=== PATIENT | male | born 1940 | race Caucasian/White ===

== ENCOUNTER 2022-04-13 13:40 | Inpatient (IN) ==
[2022-04-13] MEDS ORDERED: SODIUM CHLORIDE 0.9% 1,000 ML IV STA (13:49)
[2022-04-13 14:29] LABS: Basophils # 0.1 10*3/uL (0.0-0.2); Basophils % 0.7 % (0.0-0.8); Eosinophils # 0.1 10*3/uL (0.0-0.87); Eosinophils % 1.6 % (0.00-10.9); Hematocrit 38.7 VOL% (42.0-52.0); Immature Granulocytes % 0.3 %; Immature Granulocytes Absolute 0.02 #; Lymphocytes # 0.8 10*3/uL (1.4-4.0); Lymphocytes % 11.8 % (21.2-54.2); Mean Corpuscular HGB Conc 33.6 GM/DL (32-36); Mean Corpuscular Volume 95.8 FL (87-102); Mean Platelet Volume 11.1 FL (9.6-12.0); Monocytes # 0.7 10*3/uL (0.11-0.8); Monocytes % 10.3 % (1.7-12.7); Neutrophils % 75.3 % (38.7-73.9); Platelet Count 173 T/CUMM (130-400); Red Blood Count 4.04 MC/CUMM (3.8-5.5); Red Cell Distribution Width 13.2 % (9.3-17.3)
[2022-04-13 14:50] LABS: Alanine Aminotransferase 35 U/L (16-61); Albumin 3.5 G/DL (3.4-5.0); Alkaline Phosphatase 62 U/L (45-117); Aspartate Amino Transferase 30 U/L (0-37); Blood Urea Nitrogen 25 MG/DL (7-18); Carbon Dioxide 22 MMOL/L (21-32); Chloride 105 MMOL/L (98-107); Glucose 109 MG/DL (74-106); Potassium 4.6 MMOL/L (3.5-5.1); Sodium 136 MMOL/L (136-145); Total Protein 6.6 G/DL (6.4-8.2)
[2022-04-13 15:07] LABS: INR 1.1; PT Patient Result 12.2 SECS (10.5-12.0)
[2022-04-13] MEDS ORDERED: ASPIRIN 325 MG TABLET PO STA (16:07)
[2022-04-13] MEDS ORDERED: ALBUTEROL/IPRATROPIUM 3 ML NEB RESP TX PRN (16:36)
[2022-04-13] MEDS ORDERED: GLUCAGON 1 MG VIAL IM PRN (16:36)
[2022-04-13] MEDS ORDERED: BISACODYL 5 MG TABLET PO PRN (16:36)
[2022-04-13] MEDS ORDERED: ACETAMINOPHEN 325 MG TABLET PO PRN (16:36)
[2022-04-13] MEDS ORDERED: LACTULOSE 20 GM/30 ML UDCUP PO PRN (16:36)
[2022-04-13] MEDS ORDERED: ALUMINUM/MAGNES/SIMETH MAX STR 30 ML UDCUP PO PRN (16:36)
[2022-04-13] MEDS ORDERED: SIMETHICONE CHEW 125 MG TABLET PO PRN (16:36)
[2022-04-13] MEDS ORDERED: NITROGLYCERIN SL 0.4 MG TABLET SL PRN (16:43)
[2022-04-13] MEDS ORDERED: DEXTROSE 10% 250 ML BAG IV PRN (16:45)
[2022-04-13 18:00] LABS: Barbiturates Screen,Urine Negative (Negative); Benzodiazepines Screen,Urine Negative (Negative); Cannabinoid Screen,Urine Negative (Negative); Opiate Screen,Urine Negative (Negative); Phencyclidine Screen,Urine Negative (Negative)
[2022-04-13] MEDS ORDERED: ENOXAPARIN 40 MG/0.4 ML SYRINGE SUBCUT SCH (18:00)
[2022-04-13] MEDS: LACTATED RINGERS 1,000 ML IV SCH (19:06)
[2022-04-13] MEDS: ASPIRIN CHEW 81 MG TABLET PO SCH (21:01)
[2022-04-13] MEDS: RANOLAZINE 500 MG TABLET PO SCH (21:02)
[2022-04-13] MEDS: DOCUSATE SODIUM 100 MG CAPSULE PO SCH (21:02)
[2022-04-13] MEDS: ROSUVASTATIN 20 MG TABLET PO SCH (21:02)
[2022-04-13] MEDS: CLOPIDOGREL 75 MG TABLET PO SCH (21:02)
[2022-04-13 21:45] LABS: Bilirubin,Urine Negative (Negative); Blood, Urine Negative (Negative); Glucose,Urine (UA) Negative (Negative); Hyaline Casts,Urine 7 /LPF (0-3); Ketones,Urine Negative (Negative); Mucus,Urine Occasional /LPF (Occasional); Nitrite,Urine Negative (Negative); Protein,Urine Negative (Negative); RBC,Urine 1 /HPF (0-4); Squamous Epithelial Cell,Urine Occasional /HPF (0-10); Urine Appearance Clear (Clear); Urine Color Yellow (Yellow); Urine Urobilinogen 0.2 eU/dL (<2.0); Urine pH 6.5 (4.5-8.0)
[2022-04-14 04:26] LABS: Basophils % 0.5 % (0.0-0.8); Eosinophils # 0.1 10*3/uL (0.0-0.87); Eosinophils % 0.9 % (0.00-10.9); Hematocrit 39.9 VOL% (42.0-52.0); Hemoglobin 13.3 GM/DL (14.0-18.0); Immature Granulocytes % 0.4 %; Immature Granulocytes Absolute 0.03 #; Lymphocytes # 0.9 10*3/uL (1.4-4.0); Lymphocytes % 11.1 % (21.2-54.2); Mean Corpuscular HGB Conc 33.3 GM/DL (32-36); Mean Corpuscular Volume 97.1 FL (87-102); Mean Platelet Volume 11.8 FL (9.6-12.0); Monocytes # 0.8 10*3/uL (0.11-0.8); Monocytes % 10.1 % (1.7-12.7); Platelet Count 149 T/CUMM (130-400); Red Blood Count 4.11 MC/CUMM (3.8-5.5); Red Cell Distribution Width 13.3 % (9.3-17.3); White Blood Count 7.9 T/CUMM (4-12)
[2022-04-14 05:08] LABS: Calcium 9.1 MG/DL (8.5-10.1); Osmolality,Calculated 283.4 MOS/KG (273-304); Potassium 3.9 MMOL/L (3.5-5.1); Risk Ratio 3.28; Thyroid Stimulating Hormone 2.76 uIU/ml (0.358-3.74); VLDL Cholesterol 59.8 MG/DL
[2022-04-14] MEDS ORDERED: ENOXAPARIN 60 MG/0.6 ML SYRINGE SUBCUT ONE (05:30)
[2022-04-14] MEDS: LACTATED RINGERS 1,000 ML IV SCH ×2 (07:31→20:52)
[2022-04-14] MEDS: RANOLAZINE 500 MG TABLET PO SCH ×2 (11:06→21:02)
[2022-04-14] MEDS: CHOLECALCIFEROL 1,000 UNIT TABLET PO SCH (11:06)
[2022-04-14] MEDS: ESCITALOPRAM 10 MG TABLET PO SCH (11:06)
[2022-04-14] MEDS: PANTOPRAZOLE 40 MG TABLET PO SCH (11:06)
[2022-04-14] MEDS: DOCUSATE SODIUM 100 MG CAPSULE PO SCH ×2 (11:06→21:02)
[2022-04-14] MEDS: THYROID 90 MG PO SCH (11:09)
[2022-04-14] MEDS ORDERED: SODIUM CHLORIDE 0.9% 1,000 ML IV SCH (11:30)
[2022-04-14] MEDS: NITROGLYCERIN 2% OINT 1 INCH/GM PACK TOP SCH ×2 (14:26→19:08)
[2022-04-14] MEDS: FENOFIBRATE 48 MG TABLET PO SCH (14:27)
[2022-04-14] MEDS ORDERED: ENOXAPARIN 100 MG/ML SYRINGE SUBCUT ONE (15:00)
[2022-04-14] MEDS: carvediloL 3.125 MG TABLET PO SCH (17:33)
[2022-04-14] MEDS: ASPIRIN CHEW 81 MG TABLET PO SCH (21:01)
[2022-04-14] MEDS: ROSUVASTATIN 20 MG TABLET PO SCH (21:02)
[2022-04-14] MEDS: DICYCLOMINE 10 MG CAPSULE PO SCH (21:02)
[2022-04-14] MEDS: CLOPIDOGREL 75 MG TABLET PO SCH (21:02)
[2022-04-15] MEDS: NITROGLYCERIN 2% OINT 1 INCH/GM PACK TOP SCH ×4 (02:00→20:46)
[2022-04-15] MEDS: ENOXAPARIN 100 MG/ML SYRINGE SUBCUT SCH ×2 (04:08→16:13)
[2022-04-15 05:15] LABS: Basophils % 0.4 % (0.0-0.8); Eosinophils % 0.4 % (0.00-10.9); Hematocrit 38.9 VOL% (42.0-52.0); Hemoglobin 12.9 GM/DL (14.0-18.0); Immature Granulocytes % 0.3 %; Immature Granulocytes Absolute 0.03 #; Lymphocytes # 0.7 10*3/uL (1.4-4.0); Lymphocytes % 7.9 % (21.2-54.2); Mean Corpuscular HGB Conc 33.2 GM/DL (32-36); Mean Corpuscular Volume 97.5 FL (87-102); Mean Platelet Volume 11.6 FL (9.6-12.0); Monocytes # 0.9 10*3/uL (0.11-0.8); Monocytes % 9.4 % (1.7-12.7); Neutrophils % 81.6 % (38.7-73.9); Platelet Count 127 T/CUMM (130-400); Red Blood Count 3.99 MC/CUMM (3.8-5.5); Red Cell Distribution Width 13.2 % (9.3-17.3); White Blood Count 9.1 T/CUMM (4-12)
[2022-04-15 05:25] LABS: Calcium 9.2 MG/DL (8.5-10.1); Calcium 9.4 MG/DL (8.5-10.1); Osmolality,Calculated 273.1 MOS/KG (273-304); Potassium 4.8 MMOL/L (3.5-5.1)
[2022-04-15] MEDS: PANTOPRAZOLE 40 MG TABLET PO SCH (08:54)
[2022-04-15] MEDS: FINASTERIDE 5 MG TABLET PO SCH (08:54)
[2022-04-15] MEDS: ESCITALOPRAM 10 MG TABLET PO SCH (08:54)
[2022-04-15] MEDS: CHOLECALCIFEROL 1,000 UNIT TABLET PO SCH (08:54)
[2022-04-15] MEDS: FENOFIBRATE 48 MG TABLET PO SCH (08:54)
[2022-04-15] MEDS: RANOLAZINE 500 MG TABLET PO SCH ×2 (08:54→20:45)
[2022-04-15] MEDS: carvediloL 3.125 MG TABLET PO SCH ×2 (08:54→16:13)
[2022-04-15] MEDS: DOCUSATE SODIUM 100 MG CAPSULE PO SCH ×2 (09:02→20:45)
[2022-04-15] MEDS: DICYCLOMINE 10 MG CAPSULE PO SCH ×2 (09:02→20:45)
[2022-04-15] MEDS: THYROID 90 MG PO SCH (10:44)
[2022-04-15] MEDS ORDERED: diphenhydrAMINE CAP 25 MG CAPSULE PO ONE (11:25)
[2022-04-15] MEDS ORDERED: DIAZEPAM 5 MG TABLET PO ONE (11:25)
[2022-04-15] MEDS: LACTATED RINGERS 1,000 ML IV SCH (12:36)
[2022-04-15] MEDS ORDERED: HYDROmorphone 1 MG/1 ML SYRINGE ONE (12:43)
[2022-04-15] MEDS ORDERED: MIDAZOLAM 2 MG/2 ML VIAL ONE (12:43)
[2022-04-15] MEDS ORDERED: VERAPAMIL 5 MG/2 ML VIAL ONE (12:43)
[2022-04-15] MEDS ORDERED: HEPARIN/NACL 0.9% 2 UNITS/ML 2,000 UNIT/1,000 ML BAG IV ONE (12:43)
[2022-04-15] MEDS ORDERED: NITROGLYCERIN DRIP 50 MG/250 ML BOTTLE IV ONE (12:43)
[2022-04-15] MEDS ORDERED: ENOXAPARIN 30 MG/0.3 ML SYRINGE ONE (13:17)
[2022-04-15] MEDS ORDERED: ATROPINE 1 MG/10 ML SYRINGE ONE (13:28)
[2022-04-15] MEDS ORDERED: DEXTROSE 50% 25 GM/50 ML VIAL IV PRN (13:50)
[2022-04-15] MEDS: ASPIRIN CHEW 81 MG TABLET PO SCH (20:45)
[2022-04-15] MEDS: CLOPIDOGREL 75 MG TABLET PO SCH (20:46)
[2022-04-15] MEDS ORDERED: ROSUVASTATIN 20 MG TABLET PO SCH (21:00)
[2022-04-16] MEDS: LACTATED RINGERS 1,000 ML IV SCH (01:15)
[2022-04-16] MEDS: NITROGLYCERIN 2% OINT 1 INCH/GM PACK TOP SCH ×2 (01:15→09:03)
[2022-04-16 04:52] LABS: Basophils % 0.3 % (0.0-0.8); Eosinophils % 0.3 % (0.00-10.9); Hematocrit 37.5 VOL% (42.0-52.0); Hemoglobin 12.4 GM/DL (14.0-18.0); Immature Granulocytes % 0.4 %; Immature Granulocytes Absolute 0.04 #; Lymphocytes # 0.8 10*3/uL (1.4-4.0); Lymphocytes % 9.1 % (21.2-54.2); Mean Corpuscular HGB Conc 33.1 GM/DL (32-36); Mean Corpuscular Volume 97.4 FL (87-102); Mean Platelet Volume 11.4 FL (9.6-12.0); Monocytes # 1.1 10*3/uL (0.11-0.8); Monocytes % 12.1 % (1.7-12.7); Neutrophils % 77.8 % (38.7-73.9); Platelet Count 121 T/CUMM (130-400); Red Blood Count 3.85 MC/CUMM (3.8-5.5); Red Cell Distribution Width 13.3 % (9.3-17.3); White Blood Count 9.2 T/CUMM (4-12)
[2022-04-16 05:07] LABS: Calcium 8.7 MG/DL (8.5-10.1); Calcium 8.9 MG/DL (8.5-10.1); Potassium 3.9 MMOL/L (3.5-5.1)
[2022-04-16 05:15] LABS: Platelet Estimate Normal
[2022-04-16] MEDS ORDERED: SODIUM CHLORIDE 0.9% 250 ML IV ONE (07:59)
[2022-04-16] MEDS: RANOLAZINE 500 MG TABLET PO SCH (09:03)
[2022-04-16] MEDS: DICYCLOMINE 10 MG CAPSULE PO SCH (09:03)
[2022-04-16] MEDS: PANTOPRAZOLE 40 MG TABLET PO SCH (09:03)
[2022-04-16] MEDS: ESCITALOPRAM 10 MG TABLET PO SCH (09:03)
[2022-04-16] MEDS: CHOLECALCIFEROL 1,000 UNIT TABLET PO SCH (09:03)
[2022-04-16] MEDS: ENOXAPARIN 100 MG/ML SYRINGE SUBCUT SCH (09:04)
[2022-04-16] MEDS: carvediloL 3.125 MG TABLET PO SCH (09:04)
[2022-04-16] MEDS: DOCUSATE SODIUM 100 MG CAPSULE PO SCH (09:04)
[2022-04-16] MEDS: FENOFIBRATE 48 MG TABLET PO SCH (09:04)
[2022-04-16] MEDS: THYROID 90 MG PO SCH (09:05)
[2022-04-16] MEDS: FINASTERIDE 5 MG TABLET PO SCH (09:05)
[2022-04-16] MEDS ORDERED: ISOSORBIDE MONONITRATE 30 MG TABLET PO SCH (11:30)
[2022-04-16 12:04] VITALS: BP 129/78
== END 2022-04-16 15:48 | disposition home or self-care (01) | DRG 281 ==
LOC: N.ED 13:40 → N.EDINP 13:40 → SUATTDRO 16:36 → N.TELEN 17:38
PROVIDERS: ADMIT Internal Medicine; ATTEND Internal Medicine